=== PATIENT | female | born 1940 | race Caucasian/White ===

== ENCOUNTER 2018-05-09 12:57 | Emergency (ER) | payer OTHER ==
[~2018-05-09] VITALS: Ht 152.4 cm; Wt 62.6 kg
[~2018-05-09 12:57] MED LIST: AMARYL; INDERAL LA80 MG; MAXIDE; METFORMIN HCL500 MG; ZETIA10 MG
[2018-05-09] MEDS ORDERED: LASIX20 MG (13:15)
[2018-05-09] MEDS ORDERED: NAMENDA5 MG (13:15)
[2018-05-09] MEDS ORDERED: LIPITOR20 MG (13:15)
[2018-05-09] MEDS ORDERED: CARDURA1 MG (13:15)
[2018-05-09] MEDS ORDERED: TOPROL XL25 M1 (13:16)
[2018-05-09] MEDS ORDERED: ATACAND4 MG (13:16)
[2018-05-09] MEDS ORDERED: GABAPENTIN100 MG (13:17)
[2018-05-09] MEDS ORDERED: ASA81 MG (13:17)
[2018-05-09] MEDS ORDERED: ZITHROMAX TRI-500 MG PO (15:53)
== END 2018-05-09 16:07 | disposition home or self-care (01) ==
LOC: ER 12:57
DX: B34.9 Viral infection, unspecified (principal)

== ENCOUNTER 2019-10-09 10:20 | Outpatient (CLI) | payer OTHER ==
[~2019-10-09 10:20] MED LIST changes: +ASA81 MG; +ATACAND4 MG; +CARDURA1 MG; +GABAPENTIN100 MG; +LASIX20 MG; +LIPITOR20 MG; +NAMENDA5 MG; +TOPROL XL25 M1; +ZITHROMAX TRI-500 MG PO
== END 2019-10-09 10:24 | disposition home or self-care (01) ==
LOC: SONOGRAMA 10:20
PROVIDERS: ATTEND Pathology Anatomic Pathology
DX: E04.2 Nontoxic multinodular goiter (principal)

== ENCOUNTER 2022-05-22 07:25 | Outpatient (CLI) | payer OTHER | END 2022-05-22 07:29 | disposition home or self-care (01) | LOC: NUCLEAR 07:25 | PROVIDERS: ATTEND Internal Medicine Cardiovascular Disease | DX: I20.9 Angina pectoris, unspecified (principal) | CPT/HCPCS: 78452; 93017; A9500; J0153 ==

== ENCOUNTER 2024-06-13 02:52 | Emergency (ER) | payer OTHER ==
[~2024-06-13] VITALS: Ht 152.4 cm; Wt 66.2 kg
[2024-06-13] MEDS ORDERED: SYNTHROID50 MCG PO (03:01)
[2024-06-13] MEDS ORDERED: CLONIDINE HCL 0.1 MG TABLET PO ONE (04:02)
[2024-06-13] MEDS ORDERED: CLONIDINE HCL 0.1 MG TABLET PO STA (04:04)
== END 2024-06-13 05:37 | disposition home or self-care (01) ==
LOC: ER 02:55
DX: I10 Essential (primary) hypertension (principal); Z91.041 Radiographic dye allergy status

== ENCOUNTER 2025-01-09 17:27 | Emergency (ER) | payer OTHER ==
[~2025-01-09] VITALS: Ht 152.4 cm; Wt 63.5 kg
[~2025-01-09 17:27] MED LIST changes: +SYNTHROID50 MCG PO
[2025-01-09 18:10] VITALS: BP 179/68; O2SAT 97
[2025-01-09] MEDS ORDERED: MECLIZINE HCL 25 MG TABLET PO ONE (19:20)
[2025-01-09] MEDS ORDERED: MECLIZINE HCL 25 MG TABLET PO STA (19:21)
[2025-01-09 19:39] LABS: BASO % 1.0 % (0.1-1.2); EOS # 0.00 (0.04-0.54); EOS % 0.0 % (0.7-7.0); LYMPH # 1.82 (1.18-3.74); LYMPH % 31.3 % (19.3-53.1); MEAN PLATELET VOLUME 9.80 fl (9.4-12.4); MONO # 0.59 (0.24-0.82); MONO % 10.2 % (4.7-12.5); NEUT # 3.32 (1.56-6.13); NEUT % 57.2 % (34.0-71.1); RED CELL DISTRIBUTION WIDTH 12.3 % (11.6-14.4)
[2025-01-09 20:10] LABS: ALT/SGPT 16.0 U/L (12-78); AST/SGOT 14.0 U/L (15-37); BILIRUBIN TOTAL 0.51 mg/dL (0.3-1.2); BUN CREA RATIO 18.0 (7.0-25.0); CREATININE SERUM 1.27 mg/dL (0.55-1.02); GFR 40.28; GLOBULINA 3.6 G/DL (2.4-3.5); GLUCOSE FASTING 107.0 mg/dL (65-100); OSMOLALITY SERUM 291.0 MOSM/KG (275-295)
== END 2025-01-09 21:58 | disposition home or self-care (01) ==
LOC: ER 17:27
DX: R42 Dizziness and giddiness (principal); I10 Essential (primary) hypertension; E11.9 Type 2 diabetes mellitus without complications; Z79.84 Long term (current) use of oral hypoglycemic drugs; Z88.3 Allergy status to other anti-infective agents